=== PATIENT | male | born 2000 | race Caucasian/White ===

== ENCOUNTER → 2020-02-19 13:57 | Outpatient (CLI) | payer BC, SELFPAY ==
--- NOTE | 2020-02-19 14:08 | XR_ITS ---
PROCEDURE: XR SHOULDER RT MIN 2V CLINICAL INDICATION: right shoulder fx follow up Follow-up fracture COMPARISON: XR SHOULDER RT MIN 2V from 02/02/2020 FINDINGS: Nondisplaced avulsion fracture involves the greater tuberosity as before overall not significantly changed. No evidence of dislocation or other significant anomaly. IMPRESSION: No change nondisplaced fracture the greater tuberosity Dictated by: Darron Arias MD 02/19/2020 14:30 Electronically signed by Darron Arias MD in [place] 02/19/2020 14:30
== END ==
PROVIDERS: PCP Internal Medicine; Visit Provider Orthopaedic Surgery
DX: S42.253A Displaced fracture of greater tuberosity of unspecified humerus, initial encounter for closed fracture (principal)
CPT/HCPCS: 73030

== ENCOUNTER → 2020-03-11 13:22 | Outpatient (CLI) | payer BC, SELFPAY ==
--- NOTE | 2020-03-11 13:29 | XR_ITS ---
PROCEDURE: XR SHOULDER RT MIN 2V CLINICAL INDICATION: shoulder fx fu Follow-up fracture COMPARISON: XR SHOULDER RT MIN 2V from 02/02/2020 XR SHOULDER RT MIN 2V from 02/19/2020 FINDINGS: Previously noted avulsion fracture of the greater tuberosity is less apparent consistent with healing. Unremarkable glenohumeral joint and acromioclavicular joint IMPRESSION: . healing nondisplaced fracture of the greater tuberosity Dictated by: Darron Arias MD 03/11/2020 14:12 Electronically signed by Darron Arias MD in [place] 03/11/2020 14:12
== END ==
PROVIDERS: PCP Internal Medicine; Visit Provider Orthopaedic Surgery
DX: S42.293A Other displaced fracture of upper end of unspecified humerus, initial encounter for closed fracture (principal)
CPT/HCPCS: 73030

== ENCOUNTER 2020-04-11 17:00 | Outpatient (RCR) | payer BC, SELFPAY ==
--- NOTE | 2020-02-21 18:44 | HMH.PTOPEV ---
PT Outpatient Evaluation Rehab PT Outpatient Evaluation Start: 02/21/20 16:43 Freq: Status: Active Protocol: Document 02/21/20 18:17 KAT (Rec: 02/21/20 18:44 PDESEROUX [id number]) Electronically Signed By Miguelito Calvillo, PT 02/21/20 18:17 Outpatient Therapy Subjective History Subjective History Pt. is a 20 year old male who presents to outpatient PT with complaints of subacute and constant RUE shldr/inferior scap. P! of traumatic onset since 02/02/20 . Pt. reports tripping over a rut and falling onto his R shldr on 02/02/20. Pt. current reports donning sling when he leaves the house and @ work, but states doffing it sometimes while @ home. Pt. reports MD order to wean from sling per PT discretion. Pt. also reports no lifting over 2#, and RTMD 03/27/20. Recent diagnostic imaging positive for R shldr. greater tuberosity avulsion fx. Pt. denies injections for current pathology. 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 Current medications include Hydrocodone, Ibuprofen, Advil, and Tylenol. PMH includes 1-4th MCP fx. R hand and a R shldr. dislocation. Chief Complaint Pain,Clicks,Swelling Symptom Type Ache,Sharp,Stabbing Symptoms Relieved By Rest/Positioning,Brace/Support ,OTC Meds,Prescription Meds Symptoms Aggravated By Physical Activity,Lifting Prior Functional Limitations None Current Functional Limitations Reaching,Lifting,Housework, Dressing,Sleeping,Recreation Activity Symptom Description Constant and Continuous Level of pain today (0-10) 3 Pain scale - at its best (0-10) 1 Pain scale - at its worst (0-10) 7 Shoulder/Elbow Eval Shoulder Objective Measurements Palpation Tenderness tenderness shoulder exam standard right tenderness over the bicipital tendon right shoulder exam standard tenderness over the SA bursa shoulder right exam standard Shoulder Palpation Fin
== END 2020-04-11 18:00 | disposition home or self-care (01) ==
LOC: PT.CARL 17:00
PROVIDERS: Visit Provider Orthopaedic Surgery
DX: S42.254D Nondisplaced fracture of greater tuberosity of right humerus, subsequent encounter for fracture with routine healing (principal)
CPT/HCPCS: 97010; 97014; 97033; 97110; 97140; 97163; G0283

== ENCOUNTER → 2020-04-12 09:52 | Outpatient (CLI) | payer BC, SELFPAY ==
--- NOTE | 2020-04-12 09:56 | XR_ITS ---
PROCEDURE: XR SHOULDER RT MIN 2V CLINICAL INDICATION: shoulder pain FU COMPARISON: XR SHOULDER RT MIN 2V from 02/02/2020 FINDINGS: The nondisplaced fracture of the greater tuberosity of the humeral head appears to be centrally healed with mild radiolucency along the inferior aspect of the fracture line. However there is no significant cortical regularity. The remainder of the humeral head appears normal, the glenoid is normal. The soft tissues are normal. IMPRESSION: Essentially healed nondisplaced fracture greater tuberosity Dictated by: Dr. Jackson Chavez MD 04/12/2020 11:[address] Jackson Chavez MD in [place] 04/12/2020 11:26
== END ==
PROVIDERS: PCP Internal Medicine; Visit Provider Orthopaedic Surgery
DX: S42.254D Nondisplaced fracture of greater tuberosity of right humerus, subsequent encounter for fracture with routine healing (principal)
CPT/HCPCS: 73030

== ENCOUNTER 2020-08-29 15:37 | Emergency (ER) | payer OTHER, SELFPAY ==
[2020-08-29 16:15] VITALS: BP 171/93; PULSE 115; RESP 20; TEMP 36.4; O2SAT 99; BMI 41.6
--- NOTE | 2020-08-29 16:39 | HMH.EDUTC ---
[facility] [place] Disposition Clinical Impression: Exposure to COVID-19 virus, Encounter for laboratory testing for COVID-19 virus Disposition: Home, Self-Care Condition on Discharge: Good Instructions: Preventing the Spread of Coronavirus Discharge Instructions Additional Instructions: *Monitor Temp, Over the counter Motrin or Tylenol as directed/as needed Tylenol every 4 hours and Motrin every 6 hours (as long as your family doctor has told you that you can take it) for fever or pain. and straight to ER if unable to lower temp less than 101.0 after medication given *Warm salt water gargles may help to soothe the throat *Throat Lozenges *Warm fluids like tea with honey may help to soothe the throat *Sleep elevated *Humidifier/Vaporizer Follow up IMMEDIATELY for new or worsening symptoms or no Noticeable improvement over the next 48-72 hours. 911 for difficulty breathing or swallowing You was tested for today for COVID19 your test result should be back later this evening, you may call back later this evening to see if your test results are back and the result You was given a handout with instructions for Self Quarantine and Self isolation for while you wait on test results and what to do if they are positive Your blood pressure was elevated in [facility] make sure to follow up with your Family Doctor for further evaluation and treatment Referrals: Santi Osman [Primary Care Provider] - As needed Forms: Work/School Release Time of Disposition: 16:41 Medical Decision Making - Rigoberto Inquiry Pt receiving controlled substance: No Rigoberto was queried for this patient: No Vital Signs: 08/29/20 16:15 Temperature 97.6 F Temperature Source Oral Pulse Rate [Radial] 115 H Respiratory Rate 20 Blood Pressure [Right Arm] 171/93 H Blood Pressure Mean [Right Arm] 119 Blood Pressure Source [Right Arm] Automatic Cuff Blood Pressure Position [Right Arm] Sitting 02 Sat by Pulse Oximetry 99 Oxygen Delivery Method Room Air Orders (Tests/Meds): ORDERS Category Date Time Status Covid-19 Nasal PCR ([facility]) Routine Lab 08/29/20 16:16 Received [facility] [place] HPI - General Stated complaint: exposure to covid Time Seen by Provider: 08/29/20 16:39 Mode of Arrival: Ambulatory Source of Information: Patient Limitations: No Limitations Description of Symptoms (Recalled from Triage Doc. by RN): covid exposure. HEENT Symptoms (Recalled from RN notes): No Resp Symptoms (Recalled from RN notes): No Skin Symptoms (Recalled from RN notes): No MS Symptoms (Recalled from RN notes): No Functional Status (Recalled from RN notes): wnl - History of Present Illness Provider Complaint: Patient states that he was recently around someone that tested positive for COVID and he wanted to get tested State that he is not having any symptoms States that he eat dinner on Wednesday evening at [facility] - Related Data Allergies Allergy/AdvReac Type Severity Reaction Status Date / Time No Known Allergies Allergy Verified 04/12/20 11:10 - Worker's Comp Is this a Worker's Comp case?: No [facility] History - Hepatitis A Screen Drug use history?: No High risk sexual behaviors?: No History of sexually transmitted infection?: No Currently employed?: No Childcare worker?: No Do you have indoor plumbing?: Yes Do you have electricity?: Yes Attestation statement:: This patient has been screened for Hepatitis A risk factors. I have reviewed the patient's past medical history: Yes Other Surgeries: Yes: No Previous Surgery - Social History Smoking Status: Never smoker Alcohol Intake: never Occupational Status: employed Family Hx:: Hypertension ROS Obtained: Yes All systems reviewed & no additional complaints, Yes Systems reviewed as appropriate & no additional complaints - Constitutional Constitutional: Reports system reviewed and no additional complaints, except as docu, Denies body ache, Denies chills, Denies fever(s), Denies headache(s) - ENT Ears, Nose
[2020-08-29 16:51] VITALS: BP 171/93; PULSE 115; RESP 20; TEMP 36.4; O2SAT 99
[2020-08-29 22:56] LABS: Adenovirus,PCR Not Detected (NotDetected); Bordetella Pertussis Not Detected (NotDetected); Chlamydophila Pneumoniae, PCR Not Detected (NotDetected); Coronavirus 19, PCR Not Detected (NotDetected); Coronavirus 229E Not Detected (NotDetected); Coronavirus NL63 Not Detected (NotDetected); Coronavirus OC43 Not Detected (NotDetected); Coronovirus HKU1,PCR Not Detected (NotDetected); Human Metapneumovirus Not Detected (NotDetected); Influenza A, PCR Not Detected (NotDetected); Influenza AH1, 2009 Not Detected (NotDetected); Influenza AH1, PCR Not Detected (NotDetected); Influenza AH3,PCR Not Detected (NotDetected); Influenza B, PCR Not Detected (NotDetected); Mycoplasma Pneumoniae, PCR Not Detected (NotDetected); Parainfluenza 1, PCR Not Detected (NotDetected); Parainfluenza 2, PCR Not Detected (NotDetected); Parainfluenza 3, PCR Not Detected (NotDetected); Parainfluenza 4, PCR Not Detected (NotDetected); Respiratory Syncytial Virus Not Detected (NotDetected)
[2020-08-30 01:19] LABS: Rhinovirus/Enterovirus Detected (NotDetected)
== END 2020-08-29 16:52 | disposition home or self-care (01) ==
PROVIDERS: Emergency Provider Nurse Practitioner; PCP Internal Medicine
DX: Z20.828 Contact with and (suspected) exposure to other viral communicable diseases (principal)
CPT/HCPCS: 87581; 87633; 87798; 99201; U0003

== ENCOUNTER 2023-11-08 15:01 | Emergency (ER) | payer BC, SELFPAY ==
[2023-11-08 16:10] VITALS: BP 145/88; PULSE 114; RESP 17; TEMP 36.6; O2SAT 98; BMI 45.6
--- NOTE | 2023-11-08 16:34 | ED_ITS ---
Discharge Plan Disposition Patient Disposition: Home, Self-Care Condition: Good Prescriptions Prescriptions: New ondansetron 4 mg Tablet,Disintegrating 4 mg PO Q8H PRN (Reason: Nausea) Qty: 20 0RF dicyclomine 10 mg capsule 10 mg PO TID PRN (Reason: abdominal pain/cramping) Qty: 12 0RF Referrals Follow up/Referrals: Santi Osman MD [Primary Care Provider] - See instructions Activity Restrictions/Add. Instructions Additional Instructions/Restrictions: Drink extra fluids with and between meals. If you have difficulty drinking, try very small amounts of water or suck on ice chips. ? Avoid fruit juices, as these do not replace minerals and can actually increase diarrhea. ? Children and adults can use sports drinks to replenish electrolytes. Younger children and infants should use products formulated for children, like oral rehydration solutions. ? Eat food in small amounts and let your stomach recover. ? Get lots of rest. You may feel tired or weak. ? No greasy or fried foods for the next 24-48 hours BRAT diet Bananas Rice Apples and Moenkopi ? Make sure to drink plenty of liquids ? Return if needed ? Straight to ER if any life threatening symptoms ? Zofran as prescribed ? You was given an outpatient order for diarrhea panel, please collect specimen and bring back to outpatient lab then call back to the [facility] or follow up with family doctor for results ? Follow up with family doctor in the next 48-72 hours if no improvement or any worsening of symptoms Clinical Impressions Clinical Impression: Nausea vomiting and diarrhea Stand Alone Forms Stand Alone Forms: Work/School Release Instructions Patient Instructions: Diarrhea, DI for Nausea -- Adult, Nausea and Vomiting- Adult Discharge ED Provider: Tika Hatch [facility] [place] HPI General Stated complaint: stomach pain, diarrhea, vomitting Mode of Arrival: Ambulatory Source of Information: Patient Limitations: No Limitations Time Seen by Provider: 11/08/23 16:34 Description of Symptoms (Recalled from Triage Doc. by RN): PATIENT C/O STOMACH CRAMPS, VOMITING, AND DIARRHEA SINCE YESTERDAY AFTERNOON HEENT Symptoms (Recalled from RN notes): No Resp Symptoms (Recalled from RN notes): No Skin Symptoms (Recalled from RN notes): No MS Symptoms (Recalled from RN notes): No Functional Status (Recalled from RN notes): WNL History of Present Illness Provider Complaint: Patient states that he started yesterday afternoon with nausea, vomiting, diarrhea, and stomach cramps States that he has continued with symptoms throughout last night and today States that he was worried he would get dehydrated if he didnt get something to help with the nausea and vomiting so he came in Related Data Previous Rx's Medication Instructions Recorded dicyclomine 10 mg capsule 10 mg PO TID PRN abdominal 11/08/23 pain/cramping #12 caps ondansetron 4 mg disintegrating 4 mg PO Q8H PRN Nausea #20 tabs 11/08/23 tablet Allergies Allergy/AdvReac Type Severity Reaction Status Date / Time No Known Allergies Allergy Verified 04/12/20 11:10 Worker's Comp Is this a Worker's Comp case?: No [facility] Disclaimer: The information contained in this section may have been updated after the patient was seen, as this information can be updated by other users. Medical History (Updated 11/08/23 @ 16:47 by Tika Hatch APRN) Asthma Hypertension Social History Smoking Status: Never smoker alcohol intake: never current occupational status: employed Travel in the last 8 weeks: None ROS Obtained: Yes All systems reviewed & no additional complaints except as documented and Yes Systems reviewed as appropriate & no additional complaints except as documented Constitutional Constitutional: Reports system reviewed and no additional complaints, except as documented and Reports as per HPI Eyes Eyes: Reports system reviewed and no additional complaints, except as documented and Reports as per HPI ENT Ears, Nose, Mouth, and Throat: Reports system reviewed and no additional complaints, except as documented and Reports as per HPI Cardiovascular Cardiovascular: Reports system reviewed and no additional complaints, except as documented and Reports as per HPI Respiratory Respiratory: Reports system reviewed and no additional complaints, except as documented and Reports as per HPI Gastrointestinal Gastrointestingal: Reports system reviewed and no additional complaints, except as documented, as per HPI, cramping, diarrhea, nausea and vomiting Physical Exam General General appearance: alert and in no apparent distress ENT ENT exam: Present mucous membranes moist Expanded ENT Exam Nose exam: Absent sinus tenderness Throat exam: Present normal inspection Respiratory Respiratory exam: Present normal lung sounds bilaterally; Absent respiratory distress or wheezes Cardiovascular Cardiovascular exam: Present regular rate, normal rhythm and normal heart sounds Abdominal Exam Abdominal exam: Present soft and normal bowel sounds; Absent distention or tenderness Neurological Exam Neurological exam: Present alert, oriented X3 and normal gait Medical Decision Making Rigoberto Inquiry Pt receiving controlled substance: No Rigoberto was queried for this patient: No Vital Signs: 11/08/23 16:10 Temperature 97.8 F Temperature Source Oral Pulse Rate [Left Brachial] 114 H Respiratory Rate 17 Blood Pressure [Left Arm] 145/88 H Blood Pressure Mean [Left Arm] 107 Blood Pressure Source [Left Arm] Automatic Cuff Blood Pressure Position [Left Arm] Sitting 02 Sat by Pulse Oximetry 98 Oxygen Delivery Method Room Air Medical Decision Narrative: After zofran patient drink some water and able to keep it down
[2023-11-08] MEDS: ONDANSETRON 4MG ODT 4 MG SL (16:49)
[2023-11-08 17:06] VITALS: BP 145/88; PULSE 114; RESP 17; TEMP 36.6; O2SAT 98
== END 2023-11-08 17:25 | disposition home or self-care (01) ==
PROVIDERS: Emergency Provider Nurse Practitioner; PCP Internal Medicine
DX: R10.819 Abdominal tenderness, unspecified site (principal); R11.2 Nausea with vomiting, unspecified; R19.7 Diarrhea, unspecified
CPT/HCPCS: 99204; 99212; G0463

== ENCOUNTER 2024-05-03 07:56 | Outpatient (CLI) | payer BC, SELFPAY ==
--- NOTE | 2024-05-03 08:03 | CA_ITS ---
FINAL REPORT TECHNIQUE: Grayscale, color Doppler and duplex Doppler ultrasound of the kidneys, aorta and renal arteries was performed. Multiple velocities were measured. CLINICAL HISTORY: HTN COMPARISON: None FINDINGS: Aorta velocity: 147 cm/sec Right kidney: 14.8 cm. No evidence of hydronephrosis or mass. Right intrarenal RI: 0.48-0.60 Right renal artery velocity: 176 cm/sec. Right RAR (Renal artery-Aortic Ratio): 1.20 Left Kidney: 11.8 cm. No evidence of hydronephrosis or mass. Left intrarenal RI: 0.47-0.60 Left renal artery velocity: 134 cm/sec. Left RAR (Renal Artery-Aortic Ratio): 0.91 IMPRESSION: Less than 50% renal artery stenosis bilaterally. CT angiogram or postcontrast MR angiogram would be more sensitive for evaluation of possible renal artery stenosis. Reviewed, Interpreted and Dictated by Murray Rivera MD Transcribed by aJckie Lagunas Authenticated and [facility]
== END 2024-05-03 23:59 | disposition home or self-care (01) ==
PROVIDERS: PCP Nurse Practitioner Family; Visit Provider Nurse Practitioner Family
DX: I10 Essential (primary) hypertension (principal)
CPT/HCPCS: 93976

== ENCOUNTER 2024-05-23 13:48 | Outpatient (CLI) | payer BC, SELFPAY ==
--- NOTE | 2024-05-23 13:50 | CA_ITS ---
APPROVED REPORT EXAM: Comprehensive 2D, Doppler, and color-flow Echocardiogram Local Area Network Administrator: Renee Perales, RCS, RVS Ht: 6 ft 4 in Wt: 383lbs BSA: 2.92 BP: 146/95 mmHg Indications: HTN, Asthma 2D Dimensions IVSd 1.08 cm LA Volume 86.90 mL PWd 1.26 cm LA Volume Index 29.80 mL/m2 (M/F) 16-34 LVDd 5.41 cm EF AP4 45.30 % Aortic Root 3.21 cm GL Strain -14.7 % Left Atrium 4.13 cm RVID Base (AP4) 4.35 cm (M/F) 2.5-4.1 LVOT 2.50 cm (M/F) 1.5-2.5 M-Mode Dimensions RVDd 3.13 cm (0.9-2.6) LVDd 5.41 cm (3.5-5.7) Ao Diam 3.45 cm (2.0-3.7) LVDs 3.98 cm (3.5-5.7) IVSd 1.39 cm (0.6-1.1) PWd 1.21 cm (0.6-1.1) EF (Teich) 58.60% EPSs 0.40 cm FS 31.50% EDV (Teich) 167.20 mL TAPSE 1.84 (<1.7) ESV (Teich) 69.20 mL LV Diastology E Decel Time 131 (160-240 msec) E/A Ratio 1.39 MED E' 8.6 (>= 7 cm/sec) MED A' 8.70 cm/s E'/MED E' Ratio 7.88 (<= 14) LAT E' 14.7 (>= 10 cm/sec) LAT A' 8.90 cm/s E/LAT E' Ratio 4.61 (<= 14) Aortic Valve LVOT Max 73.0 (70-110 cm/s) AWA Index 1.31 cm2/m2 LVOT VTI 14.71 cm AoV Peak Alphonso. 100.0 (50-130 cm/s) AO Mean GR. 2.10 (<5 mmHg) AO VTI 18.9 (18-25 cm) AWA (VTI) 3.83 (2.5-4.5 cm2) Mitral Valve MV E Max Alphonso. 68.0 (40-130 cm/s) MV A Velocity 49.0 (40-130 cm/s) E/A Ratio 1.39 MV Decel. Time 131 (160-240 ms) Left Ventricle The left ventricle is normal size. The left ventricular systolic function is normal. The left ventricular ejection fraction is within the normal range. There is normal left ventricular wall thickness. There is normal LV segmental wall motion. The left ventricular diastolic function is normal. LVEF is 55%. Right Ventricle The right ventricle is normal size. The right ventricular systolic function is normal. Atria The left atrium size is normal. The right atrium size is normal. There is no Doppler evidence of interatrial shunt. Aortic Valve The aortic valve opens well. There is no aortic valvular stenosis. No aortic regurgitation is present. Mitral Valve The mitral valve is normal in structure. No evidence of mitral valve stenosis. Trace mitral regurgitation. Tricuspid Valve The tricuspid valve leaflets are thin and pliable. Trace tricuspid regurgitation. There is insufficient TR jet to estimate RVSP. Pulmonic Valve The pulmonary valve is normal in structure. Trace pulmonic regurgitation. Great Vessels The aortic root is normal in size. The ascending aorta is normal in size. IVC is normal in size and collapses >50% with inspiration. Pericardium There is no pericardial effusion. Other Information Study Quality: Adequate Conclusion Normal biventricular systolic function. No significant valvular stenosis or regurgitation. Electronically signed by : Neris Zuniga MD 05/26/2024 23:50:33
== END 2024-05-23 23:59 | disposition home or self-care (01) ==
LOC: RT 13:50
PROVIDERS: PCP Nurse Practitioner Family; Visit Provider Nurse Practitioner
DX: R94.31 Abnormal electrocardiogram [ECG] [EKG] (principal); I10 Essential (primary) hypertension
CPT/HCPCS: 93306

== ENCOUNTER 2025-05-16 19:38 | Emergency (ER) | payer BC, SELFPAY ==
--- OUTSIDE RECORDS SUMMARY | 2025-05-16 19:45 | XMS_ITS | Data Portability ---
Author Organization [place] - [facility] Address [address] [place] [id number] Care Team Providers Care Inspector Tool Name Role Phone DEBBIE PAYNE Primary Care Provider Unavaila ble Assessment No assessment recorded. Plan of Treatment Reminders Order Date Submit Date Provider Last Modified By Organization Details Last Modified Time Details Appointments None recorded. Lab None recorded. Referral None recorded. Procedures None recorded. Surgeries None recorded. Imaging None recorded. Medication Orders amoxicillin 875 mg tablet 2023 024 [facility] [id number], [address] [facility] , [place], [address], 4 16:49:00 fluticasone propionate 50 mcg/actuati on nasal spray,suspe nsion 2023 024 [facility] [id number], [address] [facility] , [place], [address], 4 16:48:57 prednisone 10 mg tablet 2023 024 [facility] [id number], [address] [facility] [place], [address], 4 16:49:04 lisinopril 20 mg tablet 2022 023 [facility] [id number], [address] [facility] , [place], [address], 3 15:46:45 lisinopril 10 mg tablet [address] [facility] [id number], [address] [facility] , [place], [address], 4 11:35:00 lisinopril 10 mg tablet 2022 023 [email or web address] [facility] [id number], [address] [facility] , [place], [address], 4 11:35:00 Patient TargetsNo targets recorded. Patient InstructionsNo instructions recorded. Reason for Referral None Reported. Problems Name Problem SNOMED Code Status Onset Date Resolution Date Notes Provider Name and Address Organization Details Recorded Time Essential hypertension 41752995 Active 2022 harrison dooley, [facility] & [place] 3 15:24:23 Seasonal allergic rhinitis 441983633 Active [address], [address] [place] [address], [id number] [place] [address] & [place] 4 16:47:02 Problem Notes None recorded. Medical Equipment None Reported. Allergies No known drug allergies Medications Name Sig Start Date Stop Date Status Note LastModified by Organization Details LastModified Time prednisone 10 mg tablet 4 tablets by mouth once daily for 5 days then decrease dose 1 tablet daily in till 0 dose active Not Available Not Available No t Available ofloxacin 0.3 % eye drops INSTILL ONE (1) DROP INTO THE LEFT EYE THREE (3) TIMES DAILY FOR ONE (1) WEEK 01/24 completed Not Available Not Available Not Available lisinopril 20 mg tablet Take 1 tablet every day by oral route for 30 days. active Not Available Not Available No t Available amoxicillin 875 mg tablet Take 1 tablet every 12 hours by oral route for 7 days. active Not Available Not Available No t Available lisinopril 10 mg tablet Take 1 tablet every day by oral route for 90 days. 01/20 completed Not Available Not Available Not Available ondansetron 4 mg disintegrat ing tablet DISSOLVE 1 TABLET IN MOUTH EVERY 8 HOURS NEEDED FOR NAUSEA 01/24 completed Not Available Not Available Not Available fluticasone propionate 50 mcg/actuati on nasal spray,suspe nsion 1 spray each nostril twice daily as directed active Not Available Not Available No t Available dicyclomine 10 mg capsule TAKE 1 CAPSULE BY MOUTH THREE TIMES DAILY NEEDED FOR ABDOMINAL PAIN 01/24 completed Not Available Not Available Not Available Vitals Date Recorded Body height Body mass index (BMI) Body weight Body temperature Oxygen saturation Oxygen saturation in Arterial blood by Pulse oximetry Heart rate Systolic And Diastolic Systolic And Diastolic Provider Name and Address Organization Details Last Updated DateTime 3 193.04 cm 44.4 kg/m2 961595. 22 g 96.5 [degF] 98 % 98 % 112 /min 180/110 mm[Hg] 200/118 mm[Hg] harrison SANCHEZ [facility] & [place] 3 15:22:28 Date Recorded Body height Body mass index (BMI) Body weight Body temperature Oxygen saturation Oxygen saturation in Arterial blood by Pulse oximetry Heart rate Systolic And Diastolic Provider Name and Address Organization Details Last Updated DateTime 4 193.04 cm 44.8 kg/m2 865769. 69 g 99.4 [degF] 98 % 98 % 106 /min 164/100 mm[Hg] harrison gracia [facility] & [place] 4 15:17:52 Date Recorded Body height Body mass index (BMI) Body weight Body temperature Oxygen saturation Oxygen saturation in Arterial blood by Pulse oximetry Heart rate Respiratory rate Systolic And Diastolic Provider Name and Address Organization Details Last Updated DateTime 3 193.04 cm 45.9 kg/m2 403160. 02 g 97.6 [degF] 98 % 98 % 90 /min 18 /min 156/100 mm[Hg] Marta SANCHEZ [facility] & [place] 3 15:51:28 Date Recorded Body height Body mass index (BMI) Body weight Body temperature Oxygen saturation Oxygen saturation in Arterial blood by Pulse oximetry Heart rate Respiratory rate Systolic And Diastolic Provider Name and Address Organization Details Last Updated DateTime 3 193.04 cm 44.9 kg/m2 533266. 58 g 98.6 [degF] 99 % 99 % 87 /min 18 /min 184/98 mm[Hg] Monse Stallings [facility] & [place] 15:29:16 Social History Question Answer Notes LastModified by Organizat ion Details LastModified Time Tobacco Smoking Status Never Smoker harrison gracia miah, [place] - [facility] & [place] 12/30/2022 15:27:01 Do You Have An Advance Directive? No [email or web address] Information not available 01/25/2024 Are You Blind Or Do You Have Difficulty Seeing? No [email or web address] Information not available 01/25/2024 What Is Your Level Of Caffeine Consumption? Occasional [email or web address] Information not available 01/27/2023 What Type Of Diet Are You Following? REGULAR [email or web address] Information not available 07/07/2023 What Was The Date Of Your Most Recent Tobacco Screening? 01/25/2024 [email or web address] Information not available 01/25/2024 Are You Passively Exposed To Smoke? No [email or web address] Information not available 01/25/2024 How Much Tobacco Do You Smoke? No Information not available 01/25/2024 Sex: Unknown Functional Status Question Answer Note LastModified by Organizat ion Details LastModified Time Do you use any illicit or recreational drugs? No [email or web address] Information not available 12/30/2022 Do you or have you ever used any other forms of tobacco or nicotine? No [email or web address] Information not available 01/27/2023 What is your level of alcohol consumption? None [email or web address] Information not available 12/30/2022 Do you or have you ever used smokeless tobacco? Never used smokeless tobacco [email or web address] Information not available 01/25/2024 What is your exercise level? Occasional [email or web address] Information not available 07/07/2023 Mental Status None recorded. Family History Relationship Description Onset Age of this Age Resolved Age Notes LastModified by Organization Details LastModified Time Father Diabetes mellitus Not available 2022 15:26:38 Mother Diabetes mellitus [email or web address] Not available 2022 15:26:46 Medical History Condition Response Coronary Artery Disease N Gout N None N Other N Blood Diseases N Kidney Stones N Hyperthyroidism N Blood Transfusion N Breast Cancer N Depression N COPD N Lung Disease N Hypothyroidism N Developmental or Behavioral Disorders N Defects or Inherited Disease N Breast Problem N Difficulty Swallowing N Anesthesia Complications N Meniere's disease N Anxiety Disorder N Muscle, Joint, or Bone Problems N Vision or Eye Problems N Arthritis N Polyps N Infertility N Cancer N Varicosities N Stroke N Endometriosis N Bladder or Kidney Problems N High Cholesterol N Liver Disease N Headaches N Fibromyalgia N Kidney Disease N Allergies/Hayfever N Heart Problems N Ear or Hearing Problems N Hospitalizations N Thyroid Problems N GI Problems N ADD/ADHD N Skin Problems N Eating Disorder N Anemia N Constipation N Mental Illness N Ovarian Cancer N Diabetes N Bedwetting N Seizures/Epilepsy N Tuberculosis N Eczema N Diverticulitis N Abuse/Domestic Violence N Asthma N Reflux/GERD N Jaundice N Hepatitis N Heart Disease N Pulmonary Embolism N Chronic Ear Infections N Pre-Eclampsia N Hypertension Y Chicken Pox N Autism Spectrum Disorder (ASD) N Osteoporosis N Thrombophilias N Immunizations Vaccine Type Date Status Note Provider Nam e and Address Organization Details Recorded Time COVID-19, mRNA, LNP-S, PF, 100 mcg/0.5mL dose or 50 mcg/0.25mL dose 1 completed harrison basil null, [place] - [facility] [place] & [place] 01/26/2023 16:18:26 COVID-19, mRNA, LNP-S, PF, 100 mcg/0.5mL dose or 50 mcg/0.25mL dose 0 completed harrison basil null, [place] - [facility] [place] & [place] 01/26/2023 16:18:26 Tdap 2 completed harrison basil null, [place] [facility] [place] & [place] 01/26/2023 16:18:26 Td (adult), 2 Lf tetanus toxoid, preservative free, adsorbed 9 completed harrison basil null, [place] - [facility] [place] & [place] 01/26/2023 16:18:26 Past Encounters Encounter ID Performer Location Encounter Start Date Encounter Closed Date Diagnosis/Indication Diagnosis SNOMED-CT Code Diagnosis ICD10 Code Diagnosis Note [id number] [facility] [address] [place] [address] 12/30/2022 15:08:38 12/30/2022 16:00:55 Acute upper respiratory infection 88290401 J06.9 As stated above, patient presents today with acute onset of upper respirator y related symptoms began 3 days ago after exposure to COVID-19. Patient states that he has had 2- home COVID-19 test. Supportive care was recommende d. Discussed with patient over-the-c ounter (particula rly the avoidance of all decongesta nts, secondary to elevated BP reading) interventi ons to treat along with the therapeuti c action of the medication and instructed to notify of worsening symptoms for evaluation . Instructed to push fluids along with the use of acetaminop hen/ibupro fen for fever and body aches. Essential hypertension 41613786 I10 Incidental finding of elevated blood pressure readings at today's visit. In discussing with patient, he reports that he has past medical history of hypertensi on and was previously treated with lisinopril . Patient states that he stopped taking medication approximat jaime 1 year ago. I discussed with patient the need for restarting of medication and continued ambulatory monitoring of blood pressure readings. Patient instructed to follow-up in 3 weeks to determine effectiven ess of medication regimen. I also discussed with patient what medication s over-the-c ounter that he can and cannot take safely secondary to his hypertensi on. [id number] [facility] [address] [place] [address] 01/27/2023 15:26:07 01/27/2023 16:13:00 Essential hypertension 50313231 I10 As stated above patient presents today in follow-up regarding hypertensi on. Blood pressure today in office was elevated, but patient reports that his ambulatory readings have been consistent with systolic ranges 120s to 130 and diastolic ranges 80s to 90. I suspect that his blood pressure at today's visit is likely white coat syndrome. We are going to go ahead and continue his current dosing of lisinopril . Current medication regimen appropriat e for control of symptoms. [id number] MD [facility] [address] [place] [address] 07/07/2023 15:09:28 07/07/2023 15:44:16 Essential hypertension 22333682 I10 Patient reports that over the last couple of weeks he has noted an elevation in his diastolic readings on ambulatory monitoring . For this reason we are going to go ahead and increase his lisinopril dosing to 20 mg daily. Patient was encouraged to continue monitoring of his blood pressure readings and follow-up as needed. Acute uppe r respiratory infection 16894895 J06.9 Detailed discussion with patient in regards to OTC treatment with Mucinex as needed for symptom relief. Supportive care recommende d. Discussed with patient over-the-c ounter interventi ons to treat along with the therapeuti c action of the medication and instructed to notify of worsening symptoms for evaluation . Instructed to push fluids along with the use of acetaminop hen/ibupro fen for fever and body aches. Education given to follow-up sooner if symptoms do not improve. [id number] MD [facility] [address] [place] [address] 01/25/2024 15:06:41 01/25/2024 16:16:04 Seasonal allergic rhinitis 021956644 J30.2 This appears to be in acute exacerbati on of a chronic process for which treatment has been prescribed . Appropriat e Education in regards to signs and symptoms of deteriorat ion were discussed with the patient. As well expectatio ns for progress in treatment and improvemen t were also discussed. The patient was notified for any concerning signs or symptoms that would require urgent re-evaluat ion. Acute maxi llary sinusitis 82150805 J01.00 This appears to be in acute process for which treatment has been prescribed . Appropriat e Education in regards to signs and symptoms of deteriorat ion were discussed with the patient. As well expectatio ns for progress in treatment and improvemen t were also discussed. The patient was notified for any concerning signs or symptoms that would require urgent re-evaluat ion. Essential hypertension 74940910 I10 Current blood pressure measuremen t is found elevation in our readings. Were going to do 2 weeks of surveillan ce reassess the need for adjustment in medication . Health Concerns Section Related Observation LastModified by Organization Detai ls LastModified Time None Recorded Concern Status LastModified by Organization Details LastModified Time None Recorded Advance Directives Directive N: Payers Insurance Date Sequence Insurance Name Policy Number Policy Strong Covered Member ID Strong Member ID Guarantor Name 01/25/2024 1 [employer] [id number] John Benton [id number] John Benton 01/25/2024 1 [employer] (POS) John Benton [id number] John Benton 07/07/2023 1 [facility] [id number] John Benton [id number] John Benton Notes Date Note Type Note Provider Name and Address Organization Details Recorded Time 12/30/2022 text/html Patient is a 22-year-old male who presents today with acute onset of upper respiratory related symptoms that began 3 days ago after recent exposure to COVID-19. Patient complaint of nasal congestion, sinus pressure and clear rhinorrhea. He denies any associated fever, cough, shortness of breath or wheezing. AIDAN JOY APRN [facility] [address], [place], [address], [facility] & [place] 12/30/2022 16:20:36 01/27/2023 text/html Patient is a 23-year-old male who presents today in follow-up regarding hypertension. Patient has past medical history of hypertension and at last visit was incidentally found to be hypertensive. In discussing with patient, he had reported that he was previously treated with lisinopril, but stated that he had stopped taking it about a year ago. Patient returns today after taking lisinopril 10 mg daily for the past 3 weeks and reports that ambulatory monitoring of his blood pressure readings indicate that his blood pressures are within target range. Patient reports systolic pressure is 120s to 130s and diastolic pressures 80s to 90. AIDAN JOY APRN [facility] [address], [place], [address], [facility] & [place] 01/27/2023 16:53:08 07/07/2023 text/html Patient is a 23-year-old male who presents today with acute onset of upper respiratory related symptoms that began this morning. Patient complaint of scratchy throat, chills, myalgias, nasal congestion and postnasal drainage. He denies any associated cough, shortness of breath or wheezing. AIDAN JOY APRN [facility] [address], [place], [address], [place] - [facility] [place] & [place] 07/07/2023 15:46:46 01/25/2024 text/html Patient is a 23-year-old male who presents today with acute onset of upper respiratory related symptoms that began this morning. Patient complaint of scratchy throat, chills, myalgias, nasal congestion and postnasal drainage. He denies any associated cough, shortness of breath or wheezing. Debbie Payne MD [address] [facility],[address], [place], [address], [place] - [facility] [place] & [place] 01/25/2024 16:49:27
--- OUTSIDE RECORDS SUMMARY | 2025-05-16 19:45 | XMS_ITS | Data Portability ---
Author Organization Formerly [facility], 1928–1983 Address [address] [place] [address] Assessment No assessment recorded. Plan of Treatment Reminders Order Date Submit Date Provider Last Modified By Organization Details Last Modified Time Details Appointments Establish ed Patient 20 2024 04:00P Herman Agrawal APRN Not available Not available Not available Lab TSH + free T4, serum 2023 024 LISANDRO Labrobert, [address], Patrick [address], [place], [address], 05/31/2024 08:11:56 thyroid peroxidas e (tpo) Ab, serum 2023 024 LISANDRO Labrobert, [address], [place] [address], [place], [address], 05/31/2024 08:11:57 HbA1c (hemoglob in A1c), blood 2023 024 LISANDRO Labrobert, [address], [place] [address], [place], [address], 04/26/2024 06:09:03 TSH + free T4, serum 2023 024 LISANDRO Labrobert, [address], [place] [address], [place], [address], 04/26/2024 06:09:00 lipid panel, serum 2023 024 LISANDRO Labrobert, [address], [place] [address], [place], [address], 04/26/2024 06:09:02 CBC w/ auto diff 2023 024 [place] [facility], [address], [place] [address], [place], [address], 04/26/2024 06:09:01 CMP, serum or plasma 2023 024 [place] [facility], [address], [place] [address], [place], [address], 04/26/2024 06:09:02 Referral None recorded. Procedures None recorded. Surgeries None recorded. Imaging US, duplex, renal artery - complete 2023 024 [facility] (X-Ray), [address] [place] [address] [address], [place], [address], 05/03/2024 10:13:35 Medication Orders dexametha sone sodium phosphate 4 mg/mL injection solution 2024 025 cbuckler Not available 03/26/2025 14:42:18 lisinopri l 20 mg tablet [address] [facility] [id number], [address] [place] [address] , [place], [address], 09/26/2024 16:53:29 hydrochlo rothiazid e 12.5 mg capsule [address] [facility] [id number], [address] [place] [address] [place], [address], 09/26/2024 16:53:32 lisinopri l 20 mg tablet 2023 024 [facility] [id number], [address] [place] [address] [place], [address], 04/25/2024 16:35:36 Patient TargetsNo targets recorded. Patient InstructionsNo instructions recorded. Reason for Referral None Reported. Results Created Date Observation Date Name Description Value Unit Range Abnormal Flag Note LastModifiedBy Organization Detail LastModifiedTime 04/25/20 24 04/26/2024 TSH+F REE T4 TSH 7.940 uIU/m L 0.450- 4.500 above high normal Not Available [facility] ([facility]) [address] [place], [address], 04/26/2024 06:09:00 04/25/20 24 04/26/2024 TSH+F REE T4 T4,free(dire ct) 1.07 NG/dL 0.82-1 .77 Not Available [facility] ([facility]) [address] [place], [address], 04/26/2024 06:09:00 04/25/20 24 04/26/2024 CBC WITH DIFFE RENTI AL/PL ATELE T WBC 8.0 x10e3 /uL 3.4-10 .8 Not Available [facility] ([facility]) [address] [place], [address], 04/26/2024 06:09:01 04/25/20 24 04/26/2024 CBC WITH DIFFE RENTI AL/PL ATELE T RBC 4.75 x10e6 /uL 4.14-5 .80 Not Available [facility] ([facility]) [address] [place], [address], 04/26/2024 06:09:01 04/25/20 24 04/26/2024 CBC WITH DIFFE RENTI AL/PL ATELE T hemoglobin 14.2 g/dL 13.0-1 7.7 Not Available [facility] ([facility]) [address] [place], [address], 04/26/2024 06:09:01 04/25/20 24 04/26/2024 CBC WITH DIFFE RENTI AL/PL ATELE T hematocrit 42.1 % 37.5-5 1.0 Not Available [facility] ([facility]) [address] [place], [address], 04/26/2024 06:09:01 04/25/20 24 04/26/2024 CBC WITH DIFFE RENTI AL/PL ATELE T MCV 89 fL 79-97 Not Available [facility] ([facility]) [address] [facility], [place], [address], 04/26/2024 06:09:01 04/25/20 24 04/26/2024 CBC WITH DIFFE RENTI AL/PL ATELE T MCH 29.9 pg 26.6-3 3.0 Not Available [facility] ([facility]) [address] [facility], [place], [address], 04/26/2024 06:09:01 04/25/20 24 04/26/2024 CBC WITH DIFFE RENTI AL/PL ATELE T MCHC 33.7 g/dL 31.5-3 5.7 Not Available [facility] ([facility]) [address] [facility], [place], [address], 04/26/2024 06:09:01 04/25/20 24 04/26/2024 CBC WITH DIFFE RENTI AL/PL ATELE T RDW 13.0 % 11.6-1 5.4 Not Available [facility] ([facility]) [address] [facility], [place], [address], 04/26/2024 06:09:01 04/25/20 24 04/26/2024 CBC WITH DIFFE RENTI AL/PL ATELE T platelets 262 x10e3 /uL 150-45 0 Not Available [facility] ([facility]) [address] [place], [address], 04/26/2024 06:09:01 04/25/20 24 04/26/2024 CBC WITH DIFFE RENTI AL/PL ATELE T neutrophils 61 % not estab. Not Available [facility] ([facility]) [address] [place], [address], 04/26/2024 06:09:01 04/25/20 24 04/26/2024 CBC WITH DIFFE RENTI AL/PL ATELE T lymphs 31 % not estab. Not Available [facility] ([facility]) [address] [facility], [place], [address], 04/26/2024 06:09:01 04/25/20 24 04/26/2024 CBC WITH DIFFE RENTI AL/PL ATELE T monocytes 6 % not estab. Not Available [facility] ([facility]) [address] [facility], [place], [address], 04/26/2024 06:09:01 04/25/20 24 04/26/2024 CBC WITH DIFFE RENTI AL/PL ATELE T eos 2 % not estab. Not Available [facility] ([facility]) [address] [facility], [place], [address], 04/26/2024 06:09:01 04/25/20 24 04/26/2024 CBC WITH DIFFE RENTI AL/PL ATELE T basos 0 % not estab. Not Available [facility] ([facility]) [address] [place], [address], 04/26/2024 06:09:01 04/25/20 24 04/26/2024 CBC WITH DIFFE RENTI AL/PL ATELE T immature cells FOURTH MATE Not Available [facility] ([facility]) [address] [place], [address], 04/26/2024 06:09:01 04/25/20 24 04/26/2024 CBC WITH DIFFE RENTI AL/PL ATELE T neutrophils (absolute) 4.8 x10e3 /uL 1.4-7. 0 Not Available [facility] ([facility]) [address] [place], [address], 04/26/2024 06:09:01 04/25/20 24 04/26/2024 CBC WITH DIFFE RENTI AL/PL ATELE T lymphs (absolute) 2.5 x10e3 /uL 0.7-3. 1 Not Available [facility] ([facility]) [address] [facility], [place], [address], 04/26/2024 06:09:01 04/25/20 24 04/26/2024 CBC WITH DIFFE RENTI AL/PL ATELE T monocytes(ab solute) 0.5 x10e3 /uL 0.1-0. 9 Not Available [facility] ([facility]) [address] [facility], [place], [address], 04/26/2024 06:09:01 04/25/20 24 04/26/2024 CBC WITH DIFFE RENTI AL/PL ATELE T eos (absolute) 0.2 x10e3 /uL 0.0-0. 4 Not Available [facility] ([facility]) [address] [facility], [place], [address], 04/26/2024 06:09:01 04/25/20 24 04/26/2024 CBC WITH DIFFE RENTI AL/PL ATELE T baso (absolute) 0.0 x10e3 /uL 0.0-0. 2 Not Available [facility] ([facility]) [address] [facility], [place], [address], 04/26/2024 06:09:01 04/25/20 24 04/26/2024 CBC WITH DIFFE RENTI AL/PL ATELE T immature granulocytes 0 % not estab. Not Available [facility] ([facility]) [address] [facility], [place], [address], 04/26/2024 06:09:01 04/25/20 24 04/26/2024 CBC WITH DIFFE RENTI AL/PL ATELE T immature grans (abs) 0.0 x10e3 /uL 0.0-0. 1 Not Available [facility] ([facility]) [address] [facility], [place], [address], 04/26/2024 06:09:01 04/25/20 24 04/26/2024 CBC WITH DIFFE RENTI AL/PL ATELE T NRBC FOURTH MATE Not Available [facility] ([facility]) [address] [facility] [place], [address], 04/26/2024 06:09:01 04/25/20 24 04/26/2024 CBC WITH DIFFE RENTI AL/PL ATELE T hematology comments: FOURTH MATE Not Available [facility] ([facility]) [address] [facility], [place], [address], 04/26/2024 06:09:01 04/25/20 24 04/26/2024 COMP. METAB OLIC PANEL (14) glucose 91 mg/dL 70-99 Not Available [facility] ([facility]) [address] [place], [address], 04/26/2024 06:09:02 04/25/20 24 04/26/2024 COMP. METAB OLIC PANEL (14) BUN 12 mg/dL 6-20 Not Available [facility] ([facility]) [address] [facility] [place], [address], 04/26/2024 06:09:02 04/25/20 24 04/26/2024 COMP. METAB OLIC PANEL (14) creatinine 0.84 mg/dL 0.76-1 .27 Not Available [facility] ([facility]) [address] [place], [address], 04/26/2024 06:09:02 04/25/20 24 04/26/2024 COMP. METAB OLIC PANEL (14) eGFR 125 mL/mi n/1.7 3 >59 Not Available [facility] ([facility]) [address] [place], [address], 04/26/2024 06:09:02 04/25/20 24 04/26/2024 COMP. METAB OLIC PANEL (14) BUN/creatini ne ratio 14 9-20 Not Available [facility] ([facility]) [address] [place], [address], 04/26/2024 06:09:02 04/25/20 24 04/26/2024 COMP. METAB OLIC PANEL (14) sodium 140 mmol/ L 134-14 4 Not Available [facility] ([facility]) [address] [place], [address], 04/26/2024 06:09:02 04/25/20 24 04/26/2024 COMP. METAB OLIC PANEL (14) potassium 4.3 mmol/ L 3.5-5. 2 Not Available [facility] ([facility]) [address] [place], [address], 04/26/2024 06:09:02 04/25/20 24 04/26/2024 COMP. METAB OLIC PANEL (14) chloride 104 mmol/ L 96-106 Not Available [facility] ([facility]) [address] [place], [address], 04/26/2024 06:09:02 04/25/20 24 04/26/2024 COMP. METAB OLIC PANEL (14) carbon dioxide, total 24 mmol/ L 20-29 Not Available [facility] ([facility]) [address] [place], [address], 04/26/2024 06:09:02 04/25/20 24 04/26/2024 COMP. METAB OLIC PANEL (14) calcium 9.2 mg/dL 8.7-10 .2 Not Available [facility] ([facility]) [address] [place], [address], 04/26/2024 06:09:02 04/25/20 24 04/26/2024 COMP. METAB OLIC PANEL (14) protein, total 7.3 g/dL 6.0-8. 5 Not Available [facility] ([facility]) [address] [place], [address], 04/26/2024 06:09:02 06/18/20 24 04/26/2024 COMP. METAB OLIC PANEL (14) albumin 4.4 g/dL 4.3-5. 2 Not Available [facility] ([facility]) [address] [facility] [place], [address], 04/26/2024 06:09:02 04/25/20 24 04/26/2024 COMP. METAB OLIC PANEL (14) globulin, total 2.9 g/dL 1.5-4. 5 Not Available [facility] ([facility]) [address] [facility] [place], [address], 04/26/2024 06:09:02 04/25/20 24 04/26/2024 COMP. METAB OLIC PANEL (14) bilirubin, total 0.3 mg/dL 0.0-1. 2 Not Available [facility] ([facility]) [address] [facility] [place], [address], 04/26/2024 06:09:02 04/25/20 24 04/26/2024 COMP. METAB OLIC PANEL (14) alkaline phosphatase 75 IU/L 44-121 Not Available [facility]) [address] [place], [address], 04/26/2024 06:09:02 04/25/20 24 04/26/2024 COMP. METAB OLIC PANEL (14) AST (SGOT) 24 IU/L 0-40 Not Available [facility] ([facility]) [address] [place], [address], 04/26/2024 06:09:02 04/25/20 24 04/26/2024 COMP. METAB OLIC PANEL (14) ALT (SGPT) 32 IU/L 0-44 Not Available [facility] ([facility]) [address] [place], [address], 04/26/2024 06:09:02 04/25/20 24 04/26/2024 LIPID PANEL cholesterol, total 172 mg/dL 100-19 9 Not Available [facility] ([facility]) [address] [place], [address], 04/26/2024 06:09:02 04/25/20 24 04/26/2024 LIPID PANEL triglyceride s 201 mg/dL 0-149 above high normal Not Available [facility] ([facility]) [address] [place], [address], 04/26/2024 06:09:02 04/25/20 24 04/26/2024 LIPID PANEL HDL cholesterol 34 mg/dL >39 below low normal Not Available [facility] ([facility]) [address] [place], [address], 04/26/2024 06:09:02 04/25/20 24 04/26/2024 LIPID PANEL VLDL cholesterol raad 35 mg/dL 5-40 Not Available [facility] ([facility]) [address] [place], [address], 04/26/2024 06:09:02 04/25/20 24 04/26/2024 LIPID PANEL LDL chol calc ([facility]) 103 mg/dL 0-99 above high normal Not Available [facility] ([facility]) [address] [place], [address], 04/26/2024 06:09:02 04/25/20 24 04/26/2024 LIPID PANEL LDL calc comment: FOURTH MATE Not Available [facility] ([facility]) [address] [place], [address], 04/26/2024 06:09:02 04/25/20 24 04/26/2024 HEMOG LOBIN A1C hemoglobin A1C 5.3 % 4.8-5. 6 Predi abete s: 5.7 - 6.4 Diabe abe: >6.4 Glyce justin contr ol for adult s with diabe abe: <7.0 Not Available [facility] ([facility]) [address] [place], [address], 04/26/2024 06:09:03 05/30/2005/31/2024 TSH+F REE T4 TSH 13.400 uIU/m L 0.450- 4.500 above high normal Not Available [facility] ([facility]) [address] [place], [address], 05/31/2024 08:11:56 05/30/20 24 05/31/2024 TSH+F REE T4 T4,free(dire ct) 1.06 NG/dL 0.82-1 .77 normal Not Available [facility] ([facility]) [address] [place], [address], 05/31/2024 08:11:56 05/30/2005/31/2024 THYRO ID PEROX IDASE (TPO) AB thyroid peroxidase (tpo) Ab 505 IU/mL 0-34 above high normal Not Available [facility] ([facility]) [address] [place], [address], 05/31/2024 08:11:57 05/03/2005/03/2024 US, duple x, renal arter y No observ ation record ed. [facility] [address], [place], [address], 05/05/2024 12:32:59 05/26/2005/23/2024 US, doppl er echoc ardio gram, w/ color flow No observ ation record ed. [facility] [address], [place], [place], [address], 05/29/2024 13:10:01 Result Notes None recorded. Problems Name Problem SNOMED Code Status Onset Date Resolution Date Notes Provider Name and Address Organization Details Recorded Time Exposure to SARS-CoV-2 Active 2019 Nury Holloway null, [place] - [facility] 0 14:01:48 Hypertensive disorder 95337094 Active Sakina Lozano null, [place] - [facility] 4 16:08:52 Problem Notes None recorded. Medical Equipment None Reported. Allergies No known drug allergies Medications Name Sig Start Date Stop Date Status Note LastModified by Organization Details LastModified Time prednisone 10 mg tablet 04/25 completed Not Available Not Available Not Available ofloxacin 0.3 % eye drops INSTILL ONE (1) DROP INTO THE LEFT EYE THREE (3) TIMES DAILY FOR ONE (1) WEEK 04/25 completed Not Available Not Available Not Available lisinopril 20 mg tablet Take 1 tablet every day by oral route as directed for 90 days. active Not Available Not Available No t Available levothyroxi ne 25 mcg tablet Take 1 tablet every day by oral route. 09/26 completed Not Available Not Available Not Available amoxicillin 875 mg tablet 04/25 completed Not Available Not Available Not Available hydrochloro thiazide 12.5 mg capsule Take 1 capsule every day by oral route for 90 days. 2023 active Not Available Not Available Not Avai lable dexamethaso ne sodium phosphate 4 mg/mL injection solution Inject 1 mL twice a day by intramusc ular route. 2024 active Not Available Not Available Not Avai lable ondansetron 4 mg disintegrat ing tablet DISSOLVE 1 TABLET IN MOUTH EVERY 8 HOURS NEEDED FOR NAUSEA 04/25 completed Not Available Not Available Not Available fluticasone propionate 50 mcg/actuati on nasal spray,suspe nsion 04/25 completed Not Available Not Available Not Available dicyclomine 10 mg capsule TAKE 1 CAPSULE BY MOUTH THREE TIMES DAILY NEEDED FOR ABDOMINAL PAIN 04/25 completed Not Available Not Available Not Available hydrochloro thiazide 12.5 mg tablet Take 1 tablet every day by oral route for 90 days. 09/26 completed Not Available Not Available Not Available Vitals Date Recorded Body height Body mass index (BMI) Body weight Heart rate Oxygen saturation Oxygen saturation in Arterial blood by Pulse oximetry Respiratory rate Systolic And Diastolic Provider Name and Address Organization Details Last Updated DateTime 5 193.04 cm 47.7 kg/m2 355776. 21 g 84 /min 98 % 98 % 18 /min 160/90 mm[Hg] Sakina Lozano [place] - [facility] 5 13:49:59 Date Recorded Body weight Body mass index (BMI) Body height Heart rate Oxygen saturation Oxygen saturation in Arterial blood by Pulse oximetry Respiratory rate Systolic And Diastolic Provider Name and Address Organization Details Last Updated DateTime 4 184492. 69 g 46.4 kg/m2 193.04 cm 77 /min 98 % 98 % 18 /min 160/90 mm[Hg] Sakina Blake [place] - [facility] 4 16:07:26 Date Recorded Body height Oxygen saturation Oxygen saturation in Arterial blood by Pulse oximetry Respiratory rate Systolic And Diastolic Provider Name and Address Organization Details Last Updated DateTime 4 193.04 cm 98 % 98 % 18 /min 144/90 mm[Hg] Sakina Blake [facility] 4 16:10:08 Date Recorded Body height Body mass index (BMI) Body weight Heart rate Oxygen saturation Oxygen saturation in Arterial blood by Pulse oximetry Respiratory rate Systolic And Diastolic Provider Name and Address Organization Details Last Updated DateTime 4 193.04 cm 45.6 kg/m2 045472. 14 g 72 /min 98 % 98 % 18 /min 146/88 mm[Hg] Sakina Blake [facility] 4 16:11:41 Social History Question Answer Notes LastModified by Organizat ion Details LastModified Time Tobacco Smoking Status [facility] 04/25/2024 16:07:59 Do You Have An Advance Directive? No Information n ot available 04/25/2024 How Many Years Have You Consumed Alcohol? 3 Information not available 04/25/2024 Is Blood Transfusion Acceptable In An Emergency? Yes Information not available 04/25/2024 What Is Your Level Of Caffeine Consumption? Moderate Information not available 04/25/2024 How Much Tobacco Do You Chew? None Information not available 04/25/2024 In The 14 Days Before Symptom Onset, Have You Had Close Contact With A Laboratory-confirm ed COVID-19 While That Case Was Ill? No Information n ot available 04/25/2024 In The 14 Days Before Symptom Onset, Have You Had Close Contact With A Person Who Is Under Investigation For COVID-19 While That Person Was Ill? No Information not available 04/25/2024 Have You Been To An Area Known To Be High Risk For COVID-19? No Information not available 04/25/2024 Are You Deaf Or Do You Have Serious Difficulty Hearing? No Information not available 04/25/2024 Which Illicit Or Recreational Drugs Have You Used? None Information not available 04/25/2024 Have You Processed Blood Or Body Fluids From An Ebola Virus Disease Patient Without Appropriate PPE? No Information not available 04/25/2024 Do You Reside In Or Have You Traveled To An Area Where Ebola Virus Transmission Is Active? No Information not available 04/25/2024 What Is The Highest Grade Or Level Of School You Have Completed Or The Highest Degree You Have Received? [id number] Information not available 04/25/2024 Have You Recently Or Are You Planning To Travel To An Area With Zika Virus? No Information not available 04/25/2024 How Many Years Have You Used Illicit Or Recreational Drugs? 0 Information not available 04/25/2024 Do You Use Protection Against STDs? Always Information not available 04/25/2024 What Is Your Relationship Status? Information not available 04/25/2024 Do You Use Your Seat Belt Or Car Seat Routinely? Yes Information not available 04/25/2024 Are You Sexually Active? Yes Information not available 04/25/2024 Do You Have Smoke And Carbon Monoxide Detectors In Your Home? Yes Information not available 04/25/2024 Are You Passively Exposed To Smoke? No Information no t available 04/25/2024 Do You Use Sunscreen Routinely? Yes Information not available 04/25/2024 Which Type Of Protection Is Used? Condom Information not available 04/25/2024 Sex: Male Functional Status Question Answer Note LastModified by Organizat ion Details LastModified Time Do you use any illicit or recreational drugs? No Information not available 04/25/2024 What is your level of alcohol consumption? Occasional Information not available 04/25/2024 Do you or have you ever used smokeless tobacco? Never used smokeless tobacco Information not available 04/25/2024 Are you currently employed? Yes Information not available 04/25/2024 Are you able to care for yourself? 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 Never used electronic cigarettes Information not available 04/25/2024 What is your exercise level? Moderate Information not available 04/25/2024 Mental Status Question Answer Note LastModified by Organization D etails LastModified Time Do you feel stressed (tense, restless, nervous, or anxious, or unable to sleep at night)? [id number] Information not available 04/25/2024 Family History Relationship Description Onset Age of this Age Resolved Age Notes LastModified by Organization Details LastModified Time Mother Disorder of thyroid gland cbuckler Not available 2023 16:07:48 Maternal Grandfather Malignant neoplasm of lung cbuckler Not available 2023 16:07:48 Paternal Grandfather Hypertensive disorder cbuckler Not available 2023 16:07:48 Father Hypertensive disorder cbuckler Not available 2023 16:07:48 Medical History Condition Response Hypertension Y Immunizations Vaccine Type Date Status Note Provider Nam e and Address Organization Details Recorded Time COVID-19, mRNA, LNP-S, PF, 100 mcg/0.5mL dose or 50 mcg/0.25mL dose 1 completed Sakina Lozano null, [place] - [facility] 05/30/2024 16:04:11 COVID-19, mRNA, LNP-S, PF, 100 mcg/0.5mL dose or 50 mcg/0.25mL dose 0 completed Sakina Lozano null, [place] - [facility] 05/30/2024 16:04:11 Tdap 2 completed Sakina Lozano [place], [place] - [facility] 05/30/2024 16:04:11 Td (adult), 2 Lf tetanus toxoid, preservative free, adsorbed 9 completed Sakina Lozano null, [place] - [facility] 05/30/2024 16:04:11 Past Encounters Encounter ID Performer Location Encounter Start Date Encounter Closed Date Diagnosis/Indication Diagnosis SNOMED-CT Code Diagnosis ICD10 Code Diagnosis [facility] [id number] [facility] [address] 04/25/2024 15:57:46 04/25/2024 16:46:00 Hypertensive disorder 10118532 I10 Patient presents with blood pressure 160/90. No acute symptoms. Ordering US of renal arteries and blood tests to rule out causes of hypertensi on. Obesity 143112636 E66.9 Patient agreeable to check labs to rule out causes of hypertensi on. [id number] Roshan Agrawal[address] [address] 05/30/2024 15:58:20 05/30/2024 16:54:21 Hypertensive disorder 47082032 I10 Continue taking blood pressure medication s a prescribed . Thyroid st imulating hormone level above reference range 345439547 R94.6 Ast thyroid level 7.940, repeat in case of error. [id number] [facility] [address] 09/26/2024 15:49:55 09/26/2024 17:01:15 Hypertensive disorder 71364815 I10 Continue taking blood pressure medication s a prescribed . [id number] [facility] [address] 03/26/2025 13:39:08 03/26/2025 14:07:47 Allergic rhinitis 74771418 J30.9 if worsen or no improvemen t returnflon asestart claritin Health Concerns Section Related Observation LastModified by Organization Detai ls LastModified Time None Recorded Concern Status LastModified by Organization Details LastModified Time None Recorded Advance Directives Directive N: Payers Insurance Date Sequence Insurance Name Policy Number Policy Strong Covered Member ID Strong Member ID Guarantor Name 04/09/2025 1 [place] [id number] John Benton [id number] John Benton Notes Date Note Type Note Provider Name and Address Organization Details Recorded Time 04/25/2024 text/html 24 yr old male presents to establish care and follow up on hypertension. Patient agreeable to blood work and states he has a family history of hypertension. was dx 3 yrs ago with htn, no testing or labs since then pt states bp is always high in dr offices once home he checks it 2 times a day and it runs 130/80. Roshan Agrawal APRN [address], [place], [address], [place] - [facility] 04/25/2024 16:39:34 05/30/2024 text/html 24 yr old male presents for a follow up on test results. States the project administrative assistant has cleared him and he was to just keep up regular appointments with primary care. needs to get thyroid levels rechecked Roshan Agraawl APRN [address], [place], [address], [place] [facility] 05/30/2024 16:49:34 09/26/2024 text/html 24 yr old male presents for a follow up on blood pressure and to get medication refills. Has been without med x 2 days. He never started synthroid, wants to wait on labs. Roshan Agrawal APRN [address], [place], [address], [place] [facility] 09/26/2024 16:56:33 03/26/2025 text/html 25 yr old male presents for allergies from mowing yard and riding an atv recently. c/o runny nose, cough,watery eyes and scratchy throat Roshan Agrawal APRN [address], [place], [address], [place] [facility] 03/26/2025 14:05:25
--- OUTSIDE RECORDS SUMMARY | 2025-05-16 19:45 | XMS_ITS | Continuity of Care Document ---
Author Organization [facility], [facility] Address [address] [place] [address] Assessment No assessment recorded. Plan of Treatment Reminders Order Date Submit Date Provider Last Modified By Organization Details Last Modified Time Details Appointments Establish ed Patient 20 2024 04:00P M Roshan Agrawal APRN Not available Not available Not available Lab None recorded. Referral None recorded. Procedures None recorded. Surgeries None recorded. Imaging None recorded. Medication Orders dexametha sone sodium phosphate 4 mg/mL injection solution 2024 025 [email or web address] Not available 03/26/2025 14:42:18 Patient TargetsNo targets recorded. Patient InstructionsNo instructions recorded. Reason for Referral None Reported. Problems Name Problem SNOMED Code Status Onset Date Resolution Date Notes Provider Name and Address Organization Details Recorded Time Exposure to SARS-CoV-2 Active 2019 N[place]ay [facility] 0 14:01:48 Hypertensive disorder 31065338 Active Sakina Lozano [facility] 4 16:08:52 Problem Notes None recorded. Medical [...] Updated DateTime 5 193.04 cm 47.7 kg/m2 309567. 21 g 84 /min 98 % 98 % 18 /min 160/90 mm[Hg] Sakina Lozano [place] - [facility] 5 13:49:59 Social History Question Answer Notes LastModified by Organizat ion Details LastModified Time Tobacco Smoking Status Never Smoker Sakina Lozano null, [place] - [facility] 04/25/2024 16:07:59 Do You Have An Advance [...] Or The Highest Degree You Have Received? 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 Never used electronic cigarettes Information not available 04/25/2024 What is your exercise level? Moderate Information not available 04/25/2024 Mental Status Question Answer Note LastModified by Organization D etails LastModified Time Do you feel stressed (tense, restless, nervous, or anxious, or unable to sleep at night)? [id number] Information not available 04/25/2024 Family History Relationship [...] dose or 50 mcg/0.25mL dose 1 completed DANIEL Jett - [facility] 05/30/2024 16:04:11 COVID-19, mRNA, LNP-S, PF, 100 mcg/0.5mL dose or 50 mcg/0.25mL dose 0 completed Sakina dooley [place] - [facility] 05/30/2024 16:04:11 Tdap 2 completed Sakina Loz[place], [place] [facility] 05/30/2024 16:04:11 Td (adult), 2 Lf tetanus toxoid, preservative free, adsorbed 9 completed Sakina Loz[place] [facility] 05/30/2024 16:04:11 Past Encounters Encounter ID Performer Location Encounter Start Date Encounter Closed Date Diagnosis/Indication Diagnosis SNOMED-CT Code Diagnosis ICD10 Code Diagnosis Note [id number] Roshan Agrawal APRN [address] [address] 03/26/2025 13:39:08 03/26/2025 14:07:47 Allergic rhinitis 68732250 J30.9 if worsen or no improvemen t returnflon asestart claritin Health Concerns Section Related Observation LastModified by Organization Detai ls LastModified Time None Recorded Concern Status LastModified by Organization Details LastModified Time None Recorded Payers Encounter Date Sequence Insurance Name Policy Number Policy Strong Covered Member ID Strong Member ID Guarantor Name 03/26/2025 1 [employer] ([place] [id number] John Benton [id number] John Benton Notes Date Note Type Note Provider Name and Address Organization Details Recorded Time 03/26/2025 text/html 25 yr old male presents for allergies from mowing yard and riding an atv recently. c/o runny nose, cough,watery eyes and scratchy throat Roshan Agrawal APRN [facility] [address], [place], [address], [place] [facility] 03/26/2025 14:05:25
[2025-05-16 19:47] VITALS: BP 167/81; PULSE 102; RESP 18; TEMP 37.6; O2SAT 97; BMI 44.0
[2025-05-16 20:02] LABS: Coronavirus 19, PCR Not Detected (NotDetected); Influenza A, PCR Not Detected (NotDetected); Influenza B, PCR Not Detected (NotDetected)
[2025-05-16 20:11] LABS: Strep Scrn Group A (Rapid) Negative (Negative)
--- NOTE | 2025-05-16 20:28 | XR_ITS ---
PROCEDURE INFORMATION: Exam: XR Chest Exam date and time: 05/16/2025 8:41 PM Age: 25 years old Clinical indication: Shortness of breath; Additional info: Cough, chills TECHNIQUE: Imaging protocol: Radiologic exam of the chest. Views: 1 view. COMPARISON: CR XR SHOULDER RT MIN 2V 04/12/2020 9:58 AM FINDINGS: Lungs: Unremarkable. No consolidation. Pleural spaces: Unremarkable. No pleural effusion. No pneumothorax. Heart/Mediastinum: Unremarkable. No cardiomegaly. Bones/joints: Unremarkable. IMPRESSION: No acute findings.
--- NOTE | 2025-05-16 20:29 | ED_ITS ---
Discharge Plan Disposition Patient Disposition: Home, Self-Care Condition: Good Prescriptions Prescriptions: New amoxicillin-pot clavulanate 875-125 mg tablet 1 tab PO BID 7 Days Qty: 14 0RF No Action lisinopril 20 mg tablet PO levothyroxine 25 mcg tablet PO hydrochlorothiazide 12.5 mg tablet 12.5 mg PO DAILY Qty: 90 2RF Referrals Follow up/Referrals: Roshan Agrawal APRN [Primary Care Provider, Medical] - See instructions Activity Restrictions/Add. Instructions Additional Instructions/Restrictions: Please follow-up with your family doctor in the upcoming days, please utilize ibuprofen Tylenol, [id number]-[id number] cold and flu medications as needed for symptomatic relief, please take your antibiotic with food as prescribed twice daily for 7 days. Please return to the emergency department any worsening signs or symptoms. Clinical Impressions Clinical Impression: Acute sinusitis Stand Alone Forms Stand Alone Forms: Work/School Release Instructions Patient Instructions: DI for Sinusitis Print Language Print Language: [place] Discharge ED Provider: Pedro Luis Nolan General Adult HPI <GARY Leung - Last Filed: 05/16/25 21:21> General Chief complaint: Upper Respiratory Infection Stated complaint: Sore throat,cold chills,body aches Time Seen by Provider: 05/16/25 19:50 Mode of Arrival: Ambulatory Source of Information: Patient Description of Symptoms (Recalled from ER Triage Doc. by RN): Pt presents to ED for sore throat, cough, congestion, cold chills & body aches. Pt states he's taken decongestant w/ no relief. Pt is A&O*4 and has no pain at this time. History of Present Illness HPI narrative: 25-year-old male presents emergency department with 3-week history of congestion, stuffiness , today he noted some productive cough describes it as phlegm , as well as some sore throat, cold chills/body aches, denies any overt fever, denies any chest pain shortness of breath, denies abdominal pain nausea vomiting constipation diarrhea no urinary type symptomatology, patient other past medical history consistent of hypertension, denies any alcohol or other drug use, initial triage vitals are unremarkable, patient has been decongestions with little no relief. No other recent sick contacts. Onset (ago): day(s) Related Data Home Medications ?Medication ?Instructions ?Recorded ?Confirmed lisinopril 20 mg tablet mg PO 05/22/24 06/07/24 levothyroxine 25 mcg tablet mcg PO 06/07/24 06/07/24 Previous Rx's ?Medication ?Instructions ?Recorded hydrochlorothiazide 12.5 mg tablet 12.5 mg PO DAILY #9 0 tabs 06/07/24 amoxicillin 875 mg-potassium 1 tab PO BID 7 days #14 t abs 05/16/25 clavulanate 125 mg tablet Allergies Allergy/AdvReac Type Severity Reaction Status Date / Time No Known Allergies Allergy Verified 06/07/24 15:09 [facility] <GARY Leung - Last Filed: 05/16/25 21:21> [facility] Disclaimer: The information contained in this section may have been updated after the patient was seen, as this information can be updated by other users. Medical History Asthma Hypertension Social History Smoking Status: Unknown if ever smoked alcohol intake: never current occupational status: employed Travel in the last 8 weeks?: None Have you lived/traveled outside [place] in past 30 days?: No Contact w/someone who lives/traveled outside US past 30 days?: No Exposure to someone with infectious disease in past 14 days?: No Do you have a fever (greater than 100.4 F or 38 C)?: No Have you tested positive for COVID-19?: No Exposed to someone with COVID-19 in past 14 days?: No Do you have a sore throat?: No Do you have a cough?: No Do you have any weakness?: No Do you have any diarrhea?: No Are you experiencing any unusual bleeding?: No Do you have any muscle aches/pain?: No Do you have any abdominal pain?: No Are you experiencing loss of taste or smell?: No Other Medical History Have you received the Flu Vaccine for this season: No Have you received the Pneumonia Vaccine: No <GARY Leung - Last Filed: 05/16/25 21:21> ROS Obtained: Yes All systems reviewed & no additional complaints except as documented Physical Exam <GARY Leung - Last Filed: 05/16/25 21:21> General General appearance: alert and in no apparent distress Head Head exam: atraumatic and normocephalic Eye Eye exam: Present PERRL and EOMI ENT ENT exam: Present normal exam, normal oropharynx, mucous membranes moist and other (No peritonsillar abscess, uvula is midline, no erythema or tonsillar exudate, some mild pain to palpation over the frontal sinuses, negative over the maxillary or ethmoid sinuses) Neck Neck exam: Present normal inspection Chest Chest inspection: Present normal inspection and symmetric chest wall rise Respiratory Respiratory exam: Present normal lung sounds bilaterally; Absent respiratory distress, wheezes or stridor Cardiovascular Cardiovascular exam: Present regular rate and normal rhythm Abdominal Exam Abdominal exam: Present soft; Absent tenderness Extremities Exam Extremities exam: Present normal inspection Neurological Exam Neurological exam: Present alert and oriented X3 Psychiatric Psychiatric exam: Present normal affect Skin Skin exam: Present warm and dry Medical Decision Making <GARY Leung - Last Filed: 05/16/25 21:21> Medical Records Medical records reviewed: Yes I reviewed the patient's medical records. Screening: Per USPSTF and CDC recommendations, given the prevalence of disease in our region, it is our hospital?s policy to screen for HIV and viral Hepatitis for all patients aged 18 and over and those with ongoing risk factors. Rigoberto Inquiry Pt receiving controlled substance: No Rigoberto was queried for this patient: No Vital Signs: 05/16/25 19:47 05/16/25 21:31 Temperature 99.7 F H 99.4 F Temperature Source Oral Oral Pulse Rate 91 H Pulse Rate [Left] 102 H Respiratory Rate 18 18 Blood Pressure 143/77 H Blood Pressure [Right Arm] 167/81 H Blood Pressure Mean [Right Arm] 109 Blood Pressure Source Automatic Cuff Blood Pressure Position Sitting 02 Sat by Pulse Oximetry 97 Oxygen Delivery Method Room Air Room Air Lab Data Lab results reviewed: Yes I reviewed the patient's lab results. Lab Results 05/16/25 19:46: SARS-CoV-2 (PCR) Not detected, Influenza A Untype (PCR) Not detected, Influenza Type B (PCR) Not detected, Group A Strep Rapid Negative Orders (Tests/Meds): ED MEDICATIONS Discontinued Medications Generic Name Dose Route Start Last Admin Trade Name Freq PRN Reason Stop Dose Admin Acetaminophen 500 mg 05/16/25 20:28 05/16/25 20:51 Acetaminophen 500mg Tab PO 05/16/25 20:29 500 mg ONCE ONE Administration Ibuprofen 400 mg 05/16/25 20:28 05/16/25 20:51 Ibuprofen 400 Mg Tablet PO 05/16/25 20:29 400 mg ONCE ONE Administration ORDERS Category Date Time Status XR chest portable Stat Exams 05/16/25 20:28 Completed Rapid PCR Covid and Flu A/B Stat Lab 05/16/25 19:46 Completed Rapid Strep Scrn Group A [Strep Scrn Group A (Rapid)] Lab 05/16/25 19:46 Completed Stat Strep Screen Confirmation Stat Micro 05/16/25 19:46 Received Medical Decision Narrative: 25-year-old male presents the emergency department with URI type symptomatology, differential diagnose include but not limited to, pneumonia, acute URI, viral rhinitis, acute sinusitis, acute bronchitis, rhinitis medimentosis I discussed this patient's case with the attending physician Dr. Nolan Will obtain rapid antigen swabs for strep, COVID-19, obtain chest x-ray, give 400 mg Motrin p.o., and 500 mg p.o. Tylenol for symptomatic relief. COVID-19 is negative, influenza A and B are negative I along with the attending physician reviewed the patient's chest x-ray, no acute consolidation, no pleural effusion, no acute abnormality, I discussed this with the patient at bedside, patient would not like to wait for final radiology report to result, he would like to be discharged home to self-care, shared decision making utilized at this appropriate, will treat the patient for bacterial rhinosinusitis as patient symptomatology is been going on for over 2 weeks, he also has some congestion, as well as chills today, no fever, as well as some pain to palpation over his sinuses, will treat with Augmentin 875 mg p.o, twice daily for 7 days for acute sinusitis, patient was given strict ED return precautions, patient will be called with results of his chest x-ray if there are any concerning findings. Patient voiced understanding and agreement with current treatment plan/discharge plan. <Pedro Luis Nolan MD - Last Filed: 05/16/25 22:39> Vital Signs: 05/16/25 19:47 05/16/25 21:31 Temperature 99.7 F H 99.4 F Temperature Source Oral Oral Pulse Rate 91 H Pulse Rate [Left] 102 H Respiratory Rate 18 18 Blood Pressure 143/77 H Blood Pressure [Right Arm] 167/81 H Blood Pressure Mean [Right Arm] 109 Blood Pressure Source Automatic Cuff Blood Pressure Position Sitting 02 Sat by Pulse Oximetry 97 Oxygen Delivery Method Room Air Room Air Lab Data Lab Results 05/16/25 19:46: SARS-CoV-2 (PCR) Not detected, Influenza A Untype (PCR) Not detected, Influenza Type B (PCR) Not detected, Group A Strep Rapid Negative Orders (Tests/Meds): ED MEDICATIONS Discontinued Medications Generic Name Dose Route Start Last Admin Trade Name Yadira PRN Reason Stop Dose Admin Acetaminophen 500 mg 05/16/25 20:28 05/16/25 20:51 Acetaminophen 500mg Tab PO 05/16/25 20:29 500 mg ONCE ONE Administration Ibuprofen 400 mg 05/16/25 20:28 05/16/25 20:51 Ibuprofen 400 Mg Tablet PO 05/16/25 20:29 400 mg ONCE ONE Administration ORDERS Category Date Time Status XR chest portable Stat Exams 05/16/25 20:28 Completed Rapid PCR Covid and Flu A/B Stat Lab 05/16/25 19:46 Completed Rapid Strep Scrn Group A [Strep Scrn Group A (Rapid)] Lab 05/16/25 19:46 Completed Stat Strep Screen Confirmation Stat Micro 05/16/25 19:46 Received Medical Decision Narrative: 25-year-old male presents the emergency department with URI type symptomatology, differential diagnose include but not limited to, pneumonia, acute URI, viral rhinitis, acute sinusitis, acute bronchitis, rhinitis medimentosis I discussed this patient's case with the attending physician Dr. Nolan Will obtain rapid antigen swabs for strep, COVID-19, obtain chest x-ray, give 400 mg Motrin p.o., and 500 mg p.o. Tylenol for symptomatic relief. COVID-19 is negative, influenza A and B are negative I along with the attending physician reviewed the patient's chest x-ray, no acute consolidation, no pleural effusion, no acute abnormality, I discussed this with the patient at bedside, patient would not like to wait for final radiology report to result, he would like to be discharged home to self-care, shared decision making utilized at this appropriate, will treat the patient for bacterial rhinosinusitis as patient symptomatology is been going on for over 2 weeks, he also has some congestion, as well as chills today, no fever, as well as some pain to palpation over his sinuses, will treat with Augmentin 875 mg p.o, twice daily for 7 days for acute sinusitis, patient was given strict ED return precautions, patient will be called with results of his chest x-ray if there are any concerning findings. Patient voiced understanding and agreement with current treatment plan/discharge plan. I was consulted by the BRETT, and we discussed the complexity of the problems being addressed. I approve the treatment and management plan for this patient's care in the emergency department, thus performing a substantive portion of the medical decision making. Pedro Luis Nolan MD Critical Care <GARY Leung - Last Filed: 05/16/25 21:21> Critical Care Time Critical Care Time: No
[2025-05-16] MEDS: ACETAMINOPHEN 500MG TAB 500 MG PO (20:51)
[2025-05-16] MEDS: IBUPROFEN 400 MG TABLET PO (20:51)
[2025-05-16 21:31] VITALS: BP 143/77; PULSE 91; RESP 18; TEMP 37.4; O2SAT 99
== END 2025-05-16 21:34 | disposition home or self-care (01) ==
PROVIDERS: Physician Assistant; Emergency Provider Student in an Organized Health Care Education/Training Program; PCP Nurse Practitioner Family
DX: J01.90 Acute sinusitis, unspecified (principal); R07.0 Pain in throat
CPT/HCPCS: 71045; 87430; 87636; 99283